=== PATIENT | female | born 1980 | race Caucasian/White ===

== ENCOUNTER 2018-10-25 10:08 | Emergency (ER) | payer BC ==
[2018-10-25 10:12] VITALS: BMI 19.1
[2018-10-25] MEDS ORDERED: SODIUM CHLORIDE 0.9% 1000 ML INFUS.BAG IV ONE (10:40)
--- NOTE | 2018-10-25 11:03 | PDOC ---
History of Present Illness - General Chief Complaint: Rectal Bleed Stated Complaint: DIARRHEA, RECTAL BLEED Time Seen by Provider: 10/25/18 10:16 - History of Present Illness Initial Comments: 10/25/18 11:00 38yo female with hx of uterine fibroids with diarrhea and rectal bleeding. Pt states diarrhea started yesterday. States she ate a corn/tomato salad and [place]cgovern chicken, which is the same thing her mother ate. States diarrhea started in the afternoon and then became watery stool. No recent travel (drove up from [place] to visit her family). No recent abx. No recent sick contacts. Pt states she felt cramping yesterday with the diarrhea, but none today. Pt states rectal bleeding started today. BRBPR. States both blood on the tissue and in the stool. States bright red, no clots, no dark red, denies black/tarry stools. No lightheaded or dizzy sensation. No dysuria. No cp/sob. No abd pain. No other complaints. PMhx: uterine fibroids Pshx: myomectomy 3 years ago All: nkda Past History - Past Medical History Allergies/Adverse Reactions: Allergies Allergy/AdvReac Type Severity Reaction Status Date / Time No Known Allergies Allergy Verified 10/25/18 10:09 Home Medications: Ambulatory Orders Iron,Carbonyl/Ascorbic Acid [Vitron-C Tablet] 1 each PO DAILY 10/25/18 Loperamide HCl [Imodium -] 2 mg PO ASDIR PRN 10/25/18 Anemia: Yes COPD: No Other medical history: UTERINE FIBROIDS - Suicide/Smoking/Psychosocial Hx Smoking History: Never smoked Have you smoked in the past 12 months: No Information on smoking cessation initiated: No Hx Alcohol Use: No Review of Systems - Review of Systems Able to Perform ROS?: Yes Is the patient limited [place] proficient: No Constitutional: No: Chills, Fever HEENTM: No: Nose Congestion, Throat Pain Respiratory: No: Cough, Shortness of Breath Cardiac (ROS): No: Chest Pain, Lightheadedness, Palpitations ABD/GI: Yes: Blood Streaked Bowels, Diarrhea, Rectal Bleeding, Abdominal cramping. No: Nausea, Vomiting : Yes: Other (no vaginal bleeding). No: Burning, Dysuria, Discharge Musculoskeletal: No: Back Pain Integumentary: No: Bruising, Rash Neurological: No: Headache, Numbness, Paresthesia, Ataxia All Other Systems: Reviewed and Negative *Physical Exam - Vital Signs Last Vital Signs Temp Pulse Resp BP Pulse Ox 98.7 F 110 H 18 127/84 98 10/25/18 10:08 10/25/18 10:08 10/25/18 10:08 10/25/18 10:08 10/25/18 10:08 - Physical Exam General Appearance: Yes: Nourished, Appropriately Dressed. No: Apparent Distress HEENT: positive: EOMI, VIGNESH, Pharynx Normal Neck: positive: Supple Respiratory/Chest: positive: Lungs Clear, Normal Breath Sounds. negative: Respiratory Distress Cardiovascular: positive: Regular Rhythm, Regular Rate, S1, S2. negative: Edema Gastrointestinal/Abdominal: positive: Normal Bowel Sounds, Soft, Other ( palpable enlarged uterus). negative: Guarding, Rebound, Tenderness Rectal Exam: positive: normal rectal tone, heme positive stool, other (no masses , no fissures, trace amount of bright red on the glove, vault empty). negative : hemorrhoids Musculoskeletal: positive: Normal Inspection. negative: CVA Tenderness Extremity: positive: Normal Capillary Refill, Normal Inspection, Normal Range of Motion Integumentary: positive: Normal Color, Dry, Warm Neurologic: positive: Fully Oriented, Alert, Normal Mood/Affect, Motor Strength 5/5, Other (ambulatory in the ED) ED Treatment Course - LABORATORY CBC & Chemistry Diagram: 10/25/18 10:45 10/25/18 10:45 Medical Decision Making - Medical Decision Making 10/25/18 11:05 a/p: 38yo female with BRBPR and diarrhea since yesterday -no abd ttp -trace amount of blood on the glove, will check labs -will give ivf hydration -pt denies lightheaded or dizziness -not tachy on exam -states abd is at baseline with palpable uterus, states it has been that way since her surgery 3 years ago. no vomiting, no nausea, last menstrual cycle was end of september. -will send labs, coags, urine, upreg -will give ivf hydration -if elevated wbc or low h/h will obtain ct -discussed with patient who agrees with the plan -denies wt loss or night sweats. 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 recommends [facility] [facility] eval pt states recent endometrial bx performed a few moths ago with her [facility] in [facility] which was normal pt updated on labs and imaging results call placed to [facility] transfer center. 10/25/18 12:[address] chest discussed with the patient who agrees with the plan 10/25/18 13:39 no episodes of diarrhea or brbpr in the ED case was discussed with Dr. Paredes from [facility] at [facility]. per Dr. Paredes, best for outpt appt on sunday. states to see Dr. Rene on sunday at 3pm in the office this was discussed with the patient who agrees with the plan. Discussed in full detail all reasons to return to the ED and need for followup. answered all questions. Discussed needing management of the mass in the abd. discussed follow up on sunday mother and the patient verbalize understanding. *DC/Admit/Observation/Transfer Diagnosis at time of Disposition: Abdominal mass, Rectal bleed, Diarrhea - Discharge Dispostion Disposition: HOME Condition at time of disposition: Stable Decision to Admit order: No - Referrals Referrals: Dr. Brittany [Other] (Appointment time is 3pm on Sunday October 28, 2018) - Patient Instructions Printed Discharge Instructions: DI for Rectal Bleeding Additional Instructions: An appointment was made for you with Dr. Rene on Sunday at 3pm. Dr. Maximo aragon is a urogynecology physician/onc. This appointment is to further evaluate your abdominal mass. Please do not miss this appointment. If you have any further questions or concerns please return to the ED. If you develop further rectal bleeding please return to the ED. If you develop fevers, chills, nausea, vomiting or any further concerns please return to the ED. Dr. Rene is located at [address] [place] [address], [address] [place] [address]. This appointment is for SundayOctober 28 at 3pm. Please take lab results and imaging cd to this appointment. - Post Discharge Activity
[2018-10-25 11:21] LABS: BASO % 0.4 % (0-2.0); EOS % 0.6 % (0-4.5); HEMATOCRIT 47.6 % (32.4-45.2); HEMOGLOBIN 15.2 GM/dl (10.7-15.3); LYMPH % 10.5 % (8-40); MCH 23.5 pg (25.7-33.7); MCHC 31.8 g/dl (32.0-36.0); MEAN CELL VOLUME 73.7 fl (80-96); MEAN PLT VOLUME 9.6 fl (7.5-11.1); MONO % 5.4 % (3.8-10.2); NEUT % 83.1 % (42.8-82.8); PLATELET COUNT 195 K/MM3 (134-434); RBC 6.46 M/mm3 (3.60-5.2); RDW 14.1 % (11.6-15.6); WHITE BLOOD COUNT 9.1 K/mm3 (4.0-10.8)
[2018-10-25 11:23] LABS: ALBUMIN 3.5 g/dl (3.4-5.0); BILIRUBIN,TOTAL 1.5 mg/dl (0.2-1); CALCIUM 8.7 mg/dl (8.5-10); CREATININE 0.7 mg/dl (0.55-1.3); POTASSIUM 3.8 mmol/L (3.5-5.1); TOT PROT 6.8 g/dl (6.4-8.2)
[2018-10-25 11:25] LABS: ACTIVATED PTT 29.6 SECONDS (25.2-36.5)
[2018-10-25 11:29] LABS: INR 1.16 (0.82-1.09); PROTHROMBIN TIME (PATIENT) 12.9 SEC (10.2-13.0)
[2018-10-25 11:33] LABS: EPITHELIAL CELLS MANY /hpf; URINE MUCUS FEW
[2018-10-25 13:15] VITALS: BP 121/74; PULSE 85; TEMP 98
== END 2018-10-25 13:55 | disposition home or self-care (01) ==
LOC: FER 10:08
PROC: 3E0337Z Introduction of Electrolytic and Water Balance Substance into Peripheral Vein, Percutaneous Approach (ICD-10-PCS; principal; 2018-10-25)
DX: R19.00 Intra-abdominal and pelvic swelling, mass and lump, unspecified site (principal); K62.5 Hemorrhage of anus and rectum; R19.7 Diarrhea, unspecified
CPT/HCPCS: 36415; 71250-TC; 74177-TC; 80053; 81003; 81015; 81025; 82272; 85025; 85610; 85730; 86850; 86900; 86901; 99284-25; J7030